=== PATIENT | male | born 1940 | race Caucasian/White ===

== ENCOUNTER 2017-09-19 11:04 | Emergency (ER) | payer MEDICARE, MEDICAID ==
[2017-09-19] VITALS (7 sets, daily range): BP systolic 92–111; BP diastolic 59–74; PULSE 87–118; RESP 20–30; TEMP 97.8–97.9; O2SAT 80–98
[~2017-09-19] VITALS: Ht 182.9 cm; Wt 83.0 kg
[~2017-09-19 11:04] MED LIST: ACET325 PO; ARIC10TA PO; DEPA125C PO; DONE5TAB14 PO; DUONI NEB; LEXA10TA PO; LORA-392 PO; MULT-34 PO; NIFE1TAB86 PO; OLAN10 PO; TAMS0.4C4 PO; TIOT18I INH; ZYPR10TA PO
[2017-09-19] MEDS ORDERED: SODIUM CHLORIDE 0.9% FLUSH 10 ML FLUSH IVF PRN (11:15)
[2017-09-19] MEDS ORDERED: RESP: ALBUTEROL 2.5 MG/3 ML NEB (SCH) INH ONE (11:15)
--- NOTE | 2017-09-19 11:50 | RADRPT ---
EXAM DATE/TIME: 09/19/2017 11:21 [place] COMPARISON: CHEST SINGLE AP, October 25, 2015, 3:05. INDICATIONS : Short of breath. MEDICAL HISTORY : unobtainable SURGICAL HISTORY : unobtainable ENCOUNTER: Initial ACUITY: 1 day PAIN SCORE: Non-responsive. LOCATION: Bilateral chest FINDINGS: Discoid atelectasis is noted within the lung bases. The heart is stable. The pulmonary vascular patte rn is normal. CONCLUSION: Bibasilar discoid atelectasis. Evaristo Maciel MD on September 19, 2017 at 11:46 Board Certified Radiologist. This report was verified electronically.
[2017-09-19 12:02] LABS: AUTOMATED NEUTROPHIL # 18.3 TH/MM3 (1.8-7.7); BASOPHIL % 0.1 % (0.0-2.0); EOSINOPHIL # 0.1 TH/MM3 (0-0.4); EOSINOPHIL % 0.5 % (0.0-4.0); HEMATOCRIT 47.4 % (39.0-51.0); LYMPH % 30.3 % (9.0-44.0); LYMPHOCYTE # 8.7 TH/MM3 (1.0-4.8); MEAN CELL VOLUME 94.1 FL (80.0-100.0); MEAN CORPUSCULAR HEMOGLOBIN 31.8 PG (27.0-34.0); MEAN CORPUSCULAR HGB CONC 33.8 % (32.0-36.0); MEAN PLATELET VOLUME 8.7 FL (7.0-11.0); MONOCYTE # 1.4 TH/MM3 (0-0.9); NEUT % 64.1 % (16.0-70.0); PLATELET COUNT 362 TH/MM3 (150-450); RED BLOOD COUNT 5.04 MIL/MM3 (4.50-5.90); RED CELL DISTRIBUTION WIDTH 14.5 % (11.6-17.2); WHITE BLOOD COUNT 28.6 TH/MM3 (4.0-11.0)
[2017-09-19] MEDS ORDERED: TYLE325T PO (12:15)
[2017-09-19] MEDS ORDERED: TAMS5CAP PO (12:15)
[2017-09-19] MEDS ORDERED: [UNRECOGNIZED DRUG - OTHER] PO (12:15)
[2017-09-19] MEDS ORDERED: PROP10TA6 PO (12:15)
[2017-09-19] MEDS ORDERED: LORA-392 PO (12:15)
[2017-09-19] MEDS ORDERED: LOTR15T TOPICAL (12:15)
[2017-09-19] MEDS ORDERED: ZYPR10TA PO (12:15)
[2017-09-19] MEDS ORDERED: NIFE60TA58 PO (12:15)
[2017-09-19] MEDS ORDERED: MULTTAB62 PO (12:15)
[2017-09-19] MEDS ORDERED: LEXA10TA PO (12:15)
[2017-09-19] MEDS ORDERED: DIVA125C PO (12:15)
[2017-09-19] MEDS ORDERED: ARIC10TA9 PO (12:15)
[2017-09-19] MEDS ORDERED: ATROPINE PO (12:15)
[2017-09-19] MEDS ORDERED: IPRASOL NEB (12:15)
[2017-09-19 12:22] LABS: BICARBONATE 26.8 MEQ/L (21.0-32.0); CALCIUM 9.1 MG/DL (8.5-10.1); CREATININE 1.07 MG/DL (0.60-1.30)
--- NOTE | 2017-09-19 13:13 | PD ---
HPI Chief Complaint: Respiratory Distress Time Seen by Provider: 11:13 Travel History International Travel<30 days: No Contact w/Intl Traveler<30days: No Traveled to known affect area: No History of Present Illness HPI The patient 76-year-old male who arrives by EMS due to shortness of breath at the [facility]. Caregivers there reported the patient has been short of breath since this morning. EMS saw SGOT of 60% on scene after applying a nonrebreather increased to the 80s. CPAP was started. The patient has a DNR order. He has a history of dementia, severe which was history. EMS service reports using nitroglycerin 0.4 mg 1 and Lasix 100 mg IV. The son has arrived in confirms DNR status in keeping the patient's wishes and agrees to proceed with hospice. PFSH Past Medical History Alzheimer's Disease: Yes Anxiety: Yes Cancer: No Cardiovascular Problems: Yes (HBP) COPD: Yes Diabetes: No Headaches: No Hypertension: Yes Psychiatric: Yes (Advancing Dementia) Respiratory: Yes (COPD ) Seizures: No Tetanus Vaccination: Unknown Past Surgical History Surgical History: Unable to Obtain Social History Alcohol Use: No Tobacco Use: No Substance Use: No Allergies-Medications (Allergen,Severity, Reaction): Coded Allergies: No Known Allergies (Unverified , 10/24/15) Reported Meds & Prescriptions Reported Meds & Active Scripts Active Reported Flomax (Tamsulosin HCl) 0.4 Mg Cap 0.4 Mg PO HS Propranolol (Propranolol HCl) 10 Mg Tab 10 Mg PO Q8HR Zyprexa (Olanzapine) 10 Mg Tab 10 Mg PO HS Nifedipine ER 24 HR (Nifedipine) 60 Mg Tab 60 Mg PO DAILY Multi-Vitamin/Minerals (Multiple Vitamins W/ Minerals) 1 Tab Tab 1 Tab PO DAILY Lotrisone Topical (Betamethasone/Clotrimazole) 1-0.05% Cream 1 Applic TOPICAL BID Apply to lower back and posterior legs every day and evening shift for rash Duoneb (Ipratropium-Albuterol Neb) 0.5-2.5 Mg/3 Ml Neb 3 Ml NEB Q4HR PRN Lexapro (Escitalopram Oxalate) 10 Mg Tab 10 Mg PO DAILY Aricept (Donepezil HCl) 10 Mg Tablet 10 Mg PO HS Depakote Sprinkles (Divalproex Sodium) 125 mg Cap 250 Mg PO TID [Atropine-Care 1%Soln] 3 Drop PO QID Ativan (Lorazepam) 0.5 Mg Tab 0.5 Mg PO BID Tylenol (Acetaminophen) 325 Mg Tab 650 Mg PO Q4H PRN Review of Systems ROS Limitations: Clinical Condition Physical Exam Narrative GENERAL: 76-year-old male unresponsive Vital Signs Date Time Temp Pulse Resp B/P (MAP) Pulse Ox O2 Delivery O2 Flow Rate FiO2 09/19/17 12:00 110 20 106/67 (80) 98 CPAP 100 09/19/17 11:42 118 29 97/74 (82) 96 CPAP 100 09/19/17 11:24 80 CPAP 100 09/19/17 11:24 30 80 CPAP 100 09/19/17 11:10 111 28 80 CPAP 100 09/19/17 11:10 97 100 09/19/17 11:09 97.8 118 30 92/59 (70) 80 SKIN: Warm and dry. HEAD: Atraumatic. Normocephalic. EYES: Pupils equal and round. No scleral icterus. No injection or drainage. ENT: No nasal bleeding or discharge. Mucous membranes pink and moist. NECK: Trachea midline. No JVD. CARDIOVASCULAR: Rate approximately 110. Rhythm regular. RESPIRATORY: Tachypnea. Rhonchi bilaterally. GASTROINTESTINAL: Abdomen soft, non-tender, nondistended. Hepatic and splenic margins not palpable. MUSCULOSKELETAL: Extremities without clubbing, cyanosis, or edema. No obvious deformities. NEUROLOGICAL: Awake and alert. No obvious cranial nerve deficits. Motor grossly within normal limits. Five out of 5 muscle strength in the arms and legs. Normal speech. PSYCHIATRIC: Appropriate mood and affect; insight and judgment normal. Data Data Last Documented VS Vital Signs Date Time Temp Pulse Resp B/P (MAP) Pulse Ox O2 Delivery O2 Flow Rate FiO2 09/19/17 13:39 97.9 87 24 97/68 (78) 98 CPAP 100 VS reviewed Orders Orders Complete Blood Count With Diff (09/19/17 11:14) Basic Metabolic Panel (Bmp) (09/19/17 11:14) B-Type Natriuretic Peptide (09/19/17 11:14) Arterial Blood Gas (Abg) (09/19/17 11:14) Iv Access Insert/Monitor (09/19/17 11:14) Electrocardiogram (09/19/17 11:14) Ecg Monitoring (09/19/17 11:14) Oximetry (09/19/17 11:14) Oxygen Administration (09/19/17 11:14) Chest, Single Ap (09/19/17 11:14) Sodium Chloride 0.9% Flush (Ns Flush) (09/19/17 11:15) Albuterol Neb (Albuterol Neb) (09/19/17 11:15) Hospice Consult (09/19/17 11:14) Ed Discharge Order (09/19/17 13:45) Labs Laboratory Tests Test 09/19/17 11:20 White Blood Count 28.6 TH/MM3 Red Blood Count 5.04 MIL/MM3 Hemoglobin 16.0 GM/DL Hematocrit 47.4 % Mean Corpuscular Volume 94.1 FL Mean Corpuscular Hemoglobin 31.8 PG Mean Corpuscular Hemoglobin Concent 33.8 % Red Cell Distribution Width 14.5 % Platelet Count 362 TH/MM3 Mean Platelet Volume 8.7 FL Neutrophils (%) (Auto) 64.1 % Lymphocytes (%) (Auto) 30.3 % Monocytes (%) (Auto) 5.0 % Eosinophils (%) (Auto) 0.5 % Basophils (%) (Auto) 0.1 % Neutrophils # (Auto) 18.3 TH/MM3 Lymphocytes # (Auto) 8.7 TH/MM3 Monocytes # (Auto) 1.4 TH/MM3 Eosinophils # (Auto) 0.1 TH/MM3 Basophils # (Auto) 0.0 TH/MM3 CBC Comment DIFF FINAL Differential Comment Blood Urea Nitrogen 21 MG/DL Creatinine 1.07 MG/DL Random Glucose 142 MG/DL Calcium Level 9.1 MG/DL Sodium Level 139 MEQ/L Potassium Level 3.9 MEQ/L Chloride Level 103 MEQ/L Carbon Dioxide Level 26.8 MEQ/L Anion Gap 9 MEQ/L Estimat Glomerular Filtration Rate 67 ML/MIN B-Type Natriuretic Peptide 55 PG/ML MDM Medical Decision Making Medical Screen Exam Complete: Yes Emergency Medical Condition: Yes Medical Record Reviewed: Yes Differential Diagnosis CHF, COPD, PNA Narrative Course CBC & BMP Diagram 09/19/17 11:20 Calcium Level 9.1 BNP 55 CXR: Bibasilar discoid atelectasis BiPAP started. The O2 sat has gradually increased to the high 90s. Hospice has been consult at. Patient has remained hemodynamically stable here with a blood pressure about 120/60 and a heart rate of approximately 110. Pt will be care for at the [facility]. Diagnosis Primary Impression: Respiratory distress Additional Impression: Senile dementia with acute confusional state Qualified Codes: F03.90 - Unspecified dementia without behavioral disturbance ; F05 - Delirium due to known physiological condition Disposition: 51 HOSPICE/MED FACILITY Condition: Stable Ismael Brewer MD Sep 19, 2017 13:13
--- NOTE | 2017-09-20 20:33 | EKG ---
Date Performed: 09/19/2017 Time Performed: 11:13:44 PTAGE: 76 years EKG: SINUS TACHYCARDIA NONSPECIFIC ST & T-WAVE ABNORMALITY ABNORMAL RHYTHM ECG Since the PREVIOUS TRACING , rate faster DOCTOR: Margo Nicholas Interpretating Date/Time 09/20/2017 20:31:43
== END 2017-09-19 15:07 | disposition hospice, inpatient (51) ==
LOC: NEPE 11:04
DX: R06.03 Acute respiratory distress (principal); F03.90 Unspecified dementia, unspecified severity, without behavioral disturbance, psychotic disturbance, mood disturbance, and anxiety; F05 Delirium due to known physiological condition; R94.31 Abnormal electrocardiogram [ECG] [EKG]; G30.9 Alzheimer's disease, unspecified; F02.80 Dementia in other diseases classified elsewhere, unspecified severity, without behavioral disturbance, psychotic disturbance, mood disturbance, and anxiety; I10 Essential (primary) hypertension; J44.9 Chronic obstructive pulmonary disease, unspecified; F41.9 Anxiety disorder, unspecified; Z66 Do not resuscitate
CPT/HCPCS: 71045; 80048; 83880; 85025; 93005; 94002